=== PATIENT | female | born 1960 | race Caucasian/White ===

== ENCOUNTER 2018-02-02 05:42 | Emergency (ER) | payer OTHER ==
[~2018-02-02] VITALS: Ht 154.9 cm; Wt 74.8 kg
[~2018-02-02 05:42] MED LIST: AMITIZA 24 MCG24 MC1 PO; BYETTA PEN 11 PENIN1 SUBQ; CELEBREX 200 M200 M1 PO; CYMBALTA20 MG PO; HYDROCHLOROTH12.5 M1 PO; LEVOTHYROXIN0.112 M1 PO; NORCO 5-325 TA1 EACH PO; PRILOSEC 20 MG20 MG PO; PRILOSEC20 MG PO; PRINIVIL20 M1 PO; TRICOR145 MG PO; ZOCOR40 MG PO
[2018-02-02] MEDS ORDERED: SSD CREAM 1% 5050 GM TOP (06:49)
[2018-02-02] MEDS ORDERED: NORCO 7.5-3251 EACH PO (06:49)
[2018-02-02 07:13] VITALS: BP 140/74
== END 2018-02-02 07:01 | disposition home or self-care (01) ==
LOC: M.ERS 05:42
DX: T22.112A Burn of first degree of left forearm, initial encounter (principal); T23.102A Burn of first degree of left hand, unspecified site, initial encounter; T20.16XA Burn of first degree of forehead and cheek, initial encounter; E11.9 Type 2 diabetes mellitus without complications; F32.9 Major depressive disorder, single episode, unspecified; E03.9 Hypothyroidism, unspecified; G43.909 Migraine, unspecified, not intractable, without status migrainosus; Z90.49 Acquired absence of other specified parts of digestive tract; Z88.8 Allergy status to other drugs, medicaments and biological substances; X10.2XXA Contact with fats and cooking oils, initial encounter; Y93.G3 Activity, cooking and baking; Y92.89 Other specified places as the place of occurrence of the external cause; Y99.8 Other external cause status

== ENCOUNTER → 2020-06-03 | Outpatient (CLI) | payer OTHER ==
[~2020-06-03] MED LIST changes: +CARVEDILOL12.5 MG PO; +GABAPENTIN600 M1 PO; +JANUMET 50-1,01 EACH; +LEVO-T100 MCG PO; +NORCO 7.5-3251 EACH PO; +OMEPRAZOLE40 MG PO; +SSD CREAM 1% 5050 GM TOP; +VOLTAREN100 GM PO
== END ==
LOC: M.PC 09:27
PROVIDERS: ATTEND Physical Medicine & Rehabilitation
DX: M25.561 Pain in right knee (principal); M25.562 Pain in left knee; G62.9 Polyneuropathy, unspecified; Z96.653 Presence of artificial knee joint, bilateral

== ENCOUNTER → 2020-06-19 | Outpatient (CLI) | payer OTHER | END | disposition home or self-care (01) | LOC: M.PC 10:31 | PROVIDERS: ATTEND Physical Medicine & Rehabilitation | DX: M25.561 Pain in right knee (principal); I10 Essential (primary) hypertension; E11.9 Type 2 diabetes mellitus without complications; E03.9 Hypothyroidism, unspecified; K21.9 Gastro-esophageal reflux disease without esophagitis; G43.909 Migraine, unspecified, not intractable, without status migrainosus; F32.9 Major depressive disorder, single episode, unspecified; Z98.890 Other specified postprocedural states; Z79.899 Other long term (current) drug therapy; Z95.2 Presence of prosthetic heart valve; Z88.8 Allergy status to other drugs, medicaments and biological substances; Z79.01 Long term (current) use of anticoagulants ==

== ENCOUNTER → 2020-07-03 | Outpatient (CLI) | payer OTHER | LOC: M.PC 06:41 | PROVIDERS: ATTEND Physical Medicine & Rehabilitation | DX: M25.561 Pain in right knee (principal); M25.562 Pain in left knee; Z96.659 Presence of unspecified artificial knee joint ==

== ENCOUNTER → 2020-07-05 | Outpatient (CLI) | payer OTHER | LOC: M.LAB 11:09 | PROVIDERS: ATTEND Physical Medicine & Rehabilitation | DX: E87.6 Hypokalemia (principal) ==